=== PATIENT | female | born 1980 | race Caucasian/White ===

== ENCOUNTER → 2016-08-25 | Outpatient (REF) | payer OTHER ==
[~2016-08-25] MED LIST: ACET50TA PO; ANUS2.5C2 EXT; COLA50CA3 PO; IBUP80TA PO; MOM30SS PO; PRENTAB9 PO; PREV30CA6 PO
== END ==
LOC: M LAB REF 16:46
PROVIDERS: ATTEND Advanced Practice Midwife
DX: R87.610 Atypical squamous cells of undetermined significance on cytologic smear of cervix (ASC-US) (principal)

== ENCOUNTER → 2017-08-16 | Outpatient (REF) | payer OTHER | LOC: M LAB REF 10:26 | DX: J11.1 Influenza due to unidentified influenza virus with other respiratory manifestations (principal) | CPT/HCPCS: 87633 ==

== ENCOUNTER → 2018-07-07 | Outpatient (REF) | payer OTHER ==
[~2018-07-07] MED LIST changes: +MAPA500T2 PO
[2018-07-12 14:37] LABS: HPV HYBRID CAPTURE II Negative (Negative)
== END ==
LOC: M LAB REF 17:07
PROVIDERS: ATTEND Advanced Practice Midwife
DX: Z12.4 Encounter for screening for malignant neoplasm of cervix (principal)

== ENCOUNTER → 2018-07-13 | Outpatient (CLI) | payer OTHER ==
--- NOTE | 2018-07-14 03:04 | REP ---
Clinical: Evaluate for foreign body (IUD). Technique: Two supine views of the abdomen and pelvis. Findings: No foreign body is identified. No IUD visualized. The bowel gas pattern is nonspecific. No organomegaly. No abnormal calcifications. Skeletal structures are intact. Impression: Normal abdominal radiograph. No foreign body/IUD. Electronically Signed by Yunior Bernal MD 07/14/2018 02:55 A
--- NOTE | 2018-07-14 04:27 | REP ---
Clinical: Pelvic pain; IUD placement . Technique: Transabdominal pelvic ultrasound followed by transvaginal examination for better evaluation of the endometrium and adnexa. Findings: Bladder is unremarkable and measures 10.0 x 8.5 x 5.3 cm . Normal anteverted uterus measures 7.3 x 4.0 x 5.4 cm . The endometrial complex measures 6.6 mm thickness. No discrete uterine or endometrial abnormalities are appreciated. No IUD identified within the uterus or visualized surrounding adnexa. Bilateral ovaries are normal in appearance. Right ovary measures 3.4 x 1.6 x 2.6 cm ; Left ovary measures 2.7 x 1.7 x 2.2 cm with 1.7 cm paraovarian cyst. No pelvic fluid or adnexal mass lesion . Impression: 1. Relatively normal anteverted uterus without IUD identified. 2. Normal bilateral ovaries. 3. 1.7 cm simple left para ovarian cyst. Electronically Signed by Yunior Bernal MD 07/14/2018 04:19 A
== END ==
LOC: M RAD 10:00
PROVIDERS: ATTEND Advanced Practice Midwife
DX: Z30.431 Encounter for routine checking of intrauterine contraceptive device (principal); N92.0 Excessive and frequent menstruation with regular cycle; N83.292 Other ovarian cyst, left side

== ENCOUNTER → 2018-08-09 | Outpatient (REF) | payer OTHER | LOC: M LAB REF 17:15 | PROVIDERS: ATTEND Obstetrics & Gynecology | DX: N92.4 Excessive bleeding in the premenopausal period (principal) ==

== ENCOUNTER 2018-11-07 06:14 | Day surgery (SDC) | payer OTHER ==
[~2018-11-07] VITALS: Ht 167.6 cm; Wt 75.7 kg
[~2018-11-07 06:14] MED LIST changes: -ACET50TA PO; +LIDOCAINE 1% MDV 20ML VIAL SQ PRN; +LR 1,000 ML IV ONE; +MAPA500T17 PO
[2018-11-07 06:53] LABS: HEMATOCRIT 36.7 % (36.0-47.0); HEMOGLOBIN 11.7 g/dl (12.0-15.5); MEAN CORPUSCULAR HEMOGLOBIN 27.2 pg (27.0-33.0); MEAN CORPUSCULAR HGB CONC 31.9 g/dl (32.0-36.5); MEAN CORPUSCULAR VOLUME 85.3 fl (80.0-96.0); PLATELET COUNT, AUTOMATED 269 10^3/uL (150-450); WHITE BLOOD COUNT 4.9 10^3/uL (4.0-10.0)
[2018-11-07] MEDS ORDERED: LIDOCAINE 2% INJ 100 MG/5 ML SDV (FOR ANES.) As Ordered ONE (07:13)
[2018-11-07] MEDS ORDERED: PROPOFOL 200 MG/20 ML VIAL As Ordered ONE (07:13)
[2018-11-07] MEDS ORDERED: MIDAZOLAM INJ 2 MG/2 ML VIAL (J2250) As Ordered ONE (07:13)
[2018-11-07] MEDS ORDERED: fentaNYL 250 MCG/5 ML INJECTION (J3010) As Ordered ONE (07:13)
[2018-11-07] MEDS ORDERED: ROCURONIUM BROMIDE 50 MG/5 ML VIAL As Ordered ONE (07:13)
[2018-11-07] MEDS ORDERED: SCOPOLAMINE 1MG TRANSDERMAL PATCH As Ordered ONE (07:15)
[2018-11-07 07:23] LABS: HCG, SERUM QUALITATIVE NEGATIVE (NEGATIVE)
[2018-11-07] MEDS ORDERED: BUPIVACAINE HCL 0.25% 30 ML VIAL As Ordered ONE (07:29)
[2018-11-07] MEDS ORDERED: SCOPOLAMINE 1MG TRANSDERMAL PATCH TOP ONE (07:30)
[2018-11-07] MEDS ORDERED: KETOROLAC 60 MG/2 ML VIAL (J1885) As Ordered ONE (08:00)
[2018-11-07] MEDS ORDERED: dexameTHASONE 4 MG/ML 1ML VIAL (J1100) As Ordered ONE (08:00)
[2018-11-07] MEDS ORDERED: ONDANSETRON 4MG/2ML VIAL (J2405) As Ordered ONE (08:00)
[2018-11-07] MEDS ORDERED: NEOSTIGMINE 10 MG/10 ML VIAL (J2710) As Ordered ONE (08:00)
[2018-11-07] MEDS ORDERED: ACETAMINOPHEN 1000MG 100ML IV BTL (OFIRMEV) (J0131 PER 10MG) As Ordered ONE (08:00)
[2018-11-07] MEDS ORDERED: METOCLOPRAMIDE INJ 10MG/2ML VIAL (J2765) As Ordered ONE (08:00)
[2018-11-07] MEDS ORDERED: GLYCOPYRROLATE INJ 0.2 MG/ML 2 ML VIAL As Ordered ONE (08:00)
[2018-11-07] MEDS ORDERED: SILVER NITRATE APPLICATOR As Ordered ONE ×2 (08:50→08:54)
[2018-11-07] MEDS ORDERED: OXYC1TAB23 PO (09:09)
[2018-11-07] MEDS ORDERED: MEPERIDINE INJ 25 MG/ML VIAL (J2175) IV PRN (09:30)
[2018-11-07] MEDS ORDERED: ONDANSETRON 4MG/2ML VIAL (J2405) IV PRN (09:30)
[2018-11-07] MEDS ORDERED: PERCOCET 5MG/325MG TAB PO PRN (09:30)
[2018-11-07] MEDS ORDERED: fentaNYL 100 MCG/2 ML INJECTION (J3010) IV PRN (09:30)
[2018-11-07] MEDS ORDERED: NORCO, ANEXSIA 5/325MG TABLET (HYDROcodone/ACETAMINOPHEN) PO PRN (09:30)
[2018-11-07 11:40] VITALS: BP 119/76
[2018-11-07] MEDS ORDERED: KETOROLAC 30 MG/ML VIAL (J1885) IV SCH (14:00)
--- NOTE | 2018-11-07 23:22 | RO ---
DATE OF PROCEDURE: 11/07/2018 PREOPERATIVE DIAGNOSES: 1. Abnormal uterine bleeding. 2. Satisfied parity with undesired fertility. POSTOPERATIVE DIAGNOSES: 1. Abnormal uterine bleeding. 2. Satisfied parity with undesired fertility. PROCEDURE PERFORMED: 1. Hysteroscopy with dilation, curettage and NovaSure ablation. 2. Laparoscopic bilateral salpingectomy. SURGEON: Margi Van MD RESIDENTIAL INSTALLER: None. ANESTHESIA: General endotracheal anesthesia. ESTIMATED BLOOD LOSS: 20 mL. URINE OUTPUT: 300 mL. INTRAVENOUS FLUIDS: 1700 mL of lactated Ringer's solution. SPECIMENS: 1. Bilateral fallopian tube. 2. Endometrial curettings. OPERATIVE FINDINGS: Patient with uterine cavity of 4.5 x 2.5 cm. Hysteroscopic findings prior showed a thickened endometrium, bilateral ostia were visualized. Post endometrial ablation showed desiccation of the endometrium. Laparoscopic findings revealed normal uterus, bilateral fallopian tubes and ovaries appeared to be normal, normal appearing liver edge and appendix. PREOPERATIVE ANTIBIOTICS: None. INFECTION CLASSIFICATION: 1. DESCRIPTION OF PROCEDURE: After informed consent was obtained and written consent was reviewed, the patient was brought to the operating room where she was placed under general endotracheal anesthesia. She was then placed in the lithotomy position and was prepped and draped in the normal sterile fashion. A time-out in the operating room was then performed identifying the patient, procedure to be performed, as well as drug allergies. A bivalve speculum was then placed revealing the cervix. The anterior lip of the cervix was grasped with a single-tooth tenaculum. Uterus then sounded determining the uterine length of 4.5 cm. The cervix was then sequentially dilated using Hanks dilators. Hysteroscope was then advanced to the cervical os, and the endometrial cavity was surveyed with the above-noted findings. The hysteroscope was then removed. A sharp curette was then advanced through the cervical os and level of the fundus and the uterus was curetted in a 360-degree fashion. Specimen was then collected and was sent to pathology. The NovaSure device was then placed. The uterine width was then obtained. Both the uterine width and length was entered into the NovaSure device. Cavity assessment was then performed, and this was followed by ablation for 2 minutes. The NovaSure device was then removed, the mesh was inspected and noted to be intact. Hysteroscope was then advanced through the cervical os, and the endometrial cavity was inspected showing desiccation of the endometrium. The hysteroscope was then removed. Hulka tenaculum was then advanced to the cervical os for means to manipulate the uterus. Single-tooth tenaculum was removed as well as the speculum. Shaw catheter was placed and set to gravity. Gloves were changed. Attention was then turned to the patient's abdomen where 0.25% Marcaine was infused in the umbilical region. This area was then incised and a 5 mm trocar and sleeve was advanced through this incision. The laparoscope was then replaced revealing intra-abdominal placement. A pneumoperitoneum was then obtained with CO2 gas. The abdomen was then surveyed with the above noted findings. Two additional port sites were placed. The first was 2 cm above the pubis symphysis in the midline. This area was infused with 0.25% Marcaine. Incision was then made and an 8 mm trocar and sleeve was advanced through this incision under direct visualization. A third trocar was placed on to the left side of the patient's abdomen just below the umbilicus, and this area was infused with 0.25% Marcaine. And a 5 mm trocar and sleeve was advanced through this incision under direct visualization. Next, using Harmonic Ovi scalpel device, the right mesosalpinx was dissected below the fallopian tube, and right fallopian tube was transected at the level of the uterus. The specimen was then brought out and in a similar fashion, the left mesosalpinx was dissected along the left fallopian tube. It was transected at the level of the uterus. The specimen was removed. Surgical sites were inspected and noted to be hemostatic. The pneumoperitoneum was then released. Instruments were removed. Trocars were removed. Incisions were then closed with #4-0 Monocryl and was dressed with Dermabond. Single- tooth tenaculum was removed. Tenaculum site was inspected and silver nitrate was applied for hemostasis. Shaw catheter was then removed. The patient was then taken out of the lithotomy position, was awakened from general anesthesia and taken to recovery in stable condition. Counts were correct. MTDD
== END 2018-11-07 11:47 | disposition home or self-care (01) ==
LOC: M SDC 06:14
PROVIDERS: ATTEND Obstetrics & Gynecology
DX: Z30.2 Encounter for sterilization (principal); N92.6 Irregular menstruation, unspecified; Z88.0 Allergy status to penicillin; Z88.2 Allergy status to sulfonamides; Z87.891 Personal history of nicotine dependence
CPT/HCPCS: 36415; 58563; 58661; 84703; 85027; 86850; 86900; 86901; 88302; 88305; J0131; J1100; J1885; J2250; J2405; J2710; J2765; J3010

== ENCOUNTER → 2019-10-11 | Outpatient (REF) | payer OTHER ==
[~2019-10-11] MED LIST changes: -LIDOCAINE 1% MDV 20ML VIAL SQ PRN; -LR 1,000 ML IV ONE; +OXYC1TAB23 PO
== END ==
LOC: M SFHCWAGY 13:00
PROVIDERS: ATTEND Nurse Practitioner Women's Health
DX: R31.0 Gross hematuria (principal)

== ENCOUNTER → 2021-04-17 | Outpatient (CLI) | payer BC ==
--- NOTE | 2021-04-17 19:25 | REP ---
INDICATION: LEFT FLANK PAIN COMPARISON: None. TECHNIQUE: Supine view of the abdomen and pelvis. FINDINGS: Bowel gas pattern is nonspecific and without obstruction or perforation. No organomegaly. No abnormal calcifications. Skeletal structures intact. IMPRESSION: Nonspecific abdominal radiograph. <Electronically signed by Yunior Bernal > 04/17/211921
== END ==
LOC: M RAD 18:57
PROVIDERS: ATTEND Physician Assistant
DX: R10.9 Unspecified abdominal pain (principal)

== ENCOUNTER → 2021-04-17 | Outpatient (REF) | payer BC, OTHER, SELFPAY ==
[2021-04-17 17:07] LABS: APPEARANCE, URINE CLEAR (CLEAR); BACTERIA, URINE AUTO NEGATIVE (NEGATIVE); BILIRUBIN, URINE AUTO NEGATIVE (NEGATIVE); BLOOD, URINE BLOOD 1+ (NEGATIVE); COLOR, URINE YELLOW (YELLOW); GLUCOSE, URINE (UA) AUTO NEGATIVE (NEGATIVE); KETONE, URINE AUTO 2+ mg/dL (NEGATIVE); LEUKOCYTE ESTERASE, URINE AUTO NEGATIVE (NEGATIVE); MUCUS, URINE SMALL (NEGATIVE); NITRITE, URINE AUTO NEGATIVE (NEGATIVE); PROTEIN, URINE AUTO NEGATIVE (NEGATIVE); RBC, URINE AUTO 0 /HPF (0-3); SPECIFIC GRAVITY URINE AUTO 1.028 (1.002-1.035); SQUAMOUS EPITHELIAL CELL UR AU 1 /HPF (0-6); UROBILINOGEN, URINE AUTO 0.2 mg/dL (0.0-2.0); WBC, URINE AUTO 1 /HPF (0-3)
== END ==
LOC: M LAB REF 16:17
PROVIDERS: ATTEND Physician Assistant
DX: N39.0 Urinary tract infection, site not specified (principal)

== ENCOUNTER → 2021-10-22 | Outpatient (REF) | payer BC | LOC: M SFHCWAGY 17:09 | PROVIDERS: ATTEND Obstetrics & Gynecology | DX: Z12.4 Encounter for screening for malignant neoplasm of cervix (principal) ==

== ENCOUNTER → 2021-11-06 | Outpatient (CLI) | payer BC | LOC: M WHC 10:38 | PROVIDERS: ATTEND Obstetrics & Gynecology | DX: N93.9 Abnormal uterine and vaginal bleeding, unspecified (principal) ==

== ENCOUNTER → 2021-11-11 | Outpatient (REF) | payer BC | LOC: M SFHCWAGY 19:10 | PROVIDERS: ATTEND Obstetrics & Gynecology | DX: N87.1 Moderate cervical dysplasia (principal); N87.0 Mild cervical dysplasia ==

== ENCOUNTER → 2021-12-17 | Outpatient (CLI) | payer BC ==
[~2021-12-17] MED LIST changes: +COLA100C5 PO; +LEXA5TAB13; +ONDA4TAB6 PO; +PERCOCET PO
== END ==
LOC: M LABSMTC 10:23
PROVIDERS: ATTEND Anesthesiology
DX: Z01.818 Encounter for other preprocedural examination (principal); Z11.52 Encounter for screening for COVID-19

== ENCOUNTER 2021-12-18 08:11 | Day surgery (SDC) | payer BC ==
[~2021-12-18] VITALS: Ht 167.6 cm; Wt 82.6 kg
[~2021-12-18 08:11] MED LIST changes: +CLINDAMYCIN 900 MG in IV 1 EA IV ONE; -COLA100C5 PO; -ONDA4TAB6 PO; -PERCOCET PO
[2021-12-18] MEDS ORDERED: LR 1,000 ML IV SCH ×3 (08:30→12:05)
[2021-12-18] MEDS ORDERED: propofoL 200 MG/20 ML VIAL As Ordered ONE (08:32)
[2021-12-18] MEDS ORDERED: ROCURONIUM BROMIDE 50 MG/5 ML VIAL As Ordered ONE ×2 (08:32→10:46)
[2021-12-18] MEDS ORDERED: LIDOCAINE 2% 100MG/5ML SDV (FOR ANES.) As Ordered ONE ×2 (08:32→08:33)
[2021-12-18] MEDS ORDERED: dexameTHASONE 4 MG/ML 1ML VIAL (J1100 PER 1MG) As Ordered ONE (08:33)
[2021-12-18] MEDS ORDERED: MIDAZOLAM INJ 2MG/2ML VIAL (J2250 PER 1MG) As Ordered ONE (08:33)
[2021-12-18] MEDS ORDERED: ONDANSETRON 4MG/2ML VIAL As Ordered ONE (08:33)
[2021-12-18] MEDS ORDERED: fentaNYL 100 MCG/2 ML INJECTION As Ordered ONE ×2 (08:33→11:33)
[2021-12-18 08:41] LABS: HEMOGLOBIN 13.5 g/dl (12.0-15.5); MEAN CORPUSCULAR HEMOGLOBIN 32.4 pg (27.0-33.0); MEAN CORPUSCULAR HGB CONC 33.8 g/dl (32.0-36.5); MEAN CORPUSCULAR VOLUME 95.9 fl (80.0-96.0); PLATELET COUNT, AUTOMATED 251 10^3/uL (150-450); RED BLOOD COUNT 4.17 10^6/uL (4.00-5.40); WHITE BLOOD COUNT 4.4 10^3/uL (4.0-10.0)
[2021-12-18] MEDS ORDERED: SUGAMMADEX SODIUM 500 MG/5 ML VIAL (BRIDION) As Ordered ONE (08:43)
[2021-12-18] MEDS ORDERED: KETOROLAC 60MG 2ML VIAL As Ordered ONE (08:43)
[2021-12-18] MEDS ORDERED: SCOPOLAMINE 1MG TRANSDERMAL PATCH TOP ONE (08:55)
[2021-12-18] MEDS ORDERED: GENTAMICIN IV ONE (09:00)
[2021-12-18] MEDS ORDERED: D5W IV ONE (09:00)
[2021-12-18] MEDS ORDERED: BUPIVACAINE HCL 0.25% 10ML VIAL As Ordered ONE ×2 (09:18→10:04)
[2021-12-18] MEDS ORDERED: METHYLENE BLUE 0.5% (5MG/ML) 10 ML AMP (PROVAYBLUE) As Ordered ONE (09:19)
[2021-12-18] MEDS ORDERED: ACETAMINOPHEN 1000MG 100ML IV BTL (OFIRMEV) (J0131 PER 10MG) As Ordered ONE (11:08)
[2021-12-18] MEDS ORDERED: METOCLOPRAMIDE INJ 10MG/2ML VIAL (J2765 PER 1) As Ordered ONE (11:24)
[2021-12-18] MEDS ORDERED: oxyCODONE 5MG TAB PO PRN (11:30)
[2021-12-18] MEDS ORDERED: HYDROMORPHONE HCL 0.5 MG/ 0.5 ML SYRINGE (J1170 PER 1) IV PRN (11:30)
[2021-12-18] MEDS ORDERED: ONDANSETRON 4MG/2ML VIAL IV PRN ×2 (11:30→12:05)
[2021-12-18] MEDS ORDERED: fentaNYL 100 MCG/2 ML INJECTION IV PRN (11:30)
[2021-12-18] MEDS ORDERED: PERCOCET 5MG/325MG TAB PO PRN ×2 (12:10)
[2021-12-18] MEDS ORDERED: MORPHINE 2 MG/ML 1ML VIAL IV PRN (12:10)
[2021-12-18] MEDS ORDERED: COLA100C5 PO (12:14)
[2021-12-18] MEDS ORDERED: PERCOCET PO (12:14)
[2021-12-18] MEDS ORDERED: IBUP80TA PO (12:14)
[2021-12-18 15:10] VITALS: BP 110/64
[2021-12-18] MEDS ORDERED: ONDA4TAB6 PO (15:27)
[2021-12-18] MEDS ORDERED: KETOROLAC 30 MG/ML 1ML VIAL IV SCH (17:00)
[2021-12-18] MEDS ORDERED: DOCUSATE SODIUM 100MG CAPSULE PO SCH (21:00)
[2021-12-19] MEDS ORDERED: IBUPROFEN 800 MG TAB PO SCH (19:00)
== END 2021-12-18 15:16 | disposition home or self-care (01) ==
LOC: M SDC 08:11
PROVIDERS: ATTEND Obstetrics & Gynecology
DX: N87.0 Mild cervical dysplasia (principal); N88.8 Other specified noninflammatory disorders of cervix uteri; F41.9 Anxiety disorder, unspecified; Z88.0 Allergy status to penicillin; Z88.1 Allergy status to other antibiotic agents; Z88.2 Allergy status to sulfonamides; Z88.8 Allergy status to other drugs, medicaments and biological substances; Z79.899 Other long term (current) drug therapy
CPT/HCPCS: 36415; 58570; 85027; 86850; 86900; 86901; 88307; J0131; J1100; J1580; J1885; J2250; J2405; J2765; J3010; Q9968; S2900

== ENCOUNTER → 2022-03-11 | Outpatient (CLI) | payer BC ==
[~2022-03-11] MED LIST changes: -CLINDAMYCIN 900 MG in IV 1 EA IV ONE; +COLA100C5 PO; +ONDA4TAB6 PO; +PERCOCET PO
== END ==
LOC: M RAD 11:44
PROVIDERS: ATTEND Physician Assistant
DX: J32.8 Other chronic sinusitis (principal)

== ENCOUNTER → 2022-05-09 | Outpatient (CLI) | payer BC ==
[~2022-05-09] MED LIST changes: +LEXA5TAB13 PO; +VALA500T5 PO; +VITMTA PO; +XIID5DRO OU
== END ==
LOC: M LABSMTC 11:07
PROVIDERS: ATTEND Anesthesiology
DX: Z01.812 Encounter for preprocedural laboratory examination (principal)

== ENCOUNTER 2022-05-10 10:23 | Day surgery (SDC) | payer BC ==
[~2022-05-10] VITALS: Ht 167.6 cm; Wt 88.0 kg
[2022-05-10] MEDS ORDERED: OXYMETAZOLINE 0.05% NASAL SPRAY (AFRIN) As Ordered ONE (10:43)
[2022-05-10] MEDS ORDERED: COCAINE 4% 4ML NASAL SOLUTION BTL As Ordered ONE (10:43)
[2022-05-10] MEDS ORDERED: LIDOCAINE W/EPINEPHRINE 1% 20ML VIAL As Ordered ONE (10:45)
[2022-05-10] MEDS ORDERED: LR 1,000 ML IV SCH ×2 (10:55→13:35)
[2022-05-10] MEDS ORDERED: SCOPOLAMINE 1MG TRANSDERMAL PATCH TOP ONE (12:00)
[2022-05-10] MEDS ORDERED: ACETAMINOPHEN 1000MG 100ML IV BTL (OFIRMEV) (J0131 PER 10MG) As Ordered ONE (12:51)
[2022-05-10] MEDS ORDERED: SUGAMMADEX SODIUM 500 MG/5 ML VIAL (BRIDION) As Ordered ONE (12:51)
[2022-05-10] MEDS ORDERED: ONDANSETRON 4MG 2ML VIAL As Ordered ONE (12:51)
[2022-05-10] MEDS ORDERED: MIDAZOLAM INJ 2MG/2ML VIAL (J2250 PER 1MG) As Ordered ONE (12:51)
[2022-05-10] MEDS ORDERED: METOCLOPRAMIDE INJ 10MG/2ML VIAL (J2765 PER 1) As Ordered ONE (12:51)
[2022-05-10] MEDS ORDERED: dexameTHASONE 4 MG/ML 1ML VIAL (J1100 PER 1MG) As Ordered ONE (12:51)
[2022-05-10] MEDS ORDERED: ROCURONIUM BROMIDE 50 MG/5 ML VIAL As Ordered ONE (12:51)
[2022-05-10] MEDS ORDERED: LIDOCAINE 2% 100MG/5ML SDV (FOR ANES.) As Ordered ONE (12:51)
[2022-05-10] MEDS ORDERED: fentaNYL 100 MCG/2 ML INJECTION As Ordered ONE (12:51)
[2022-05-10] MEDS ORDERED: propofoL 200 MG/20 ML VIAL As Ordered ONE (12:51)
[2022-05-10] MEDS ORDERED: SEVOFLURANE INHAL SOLN 250 ML BTL As Ordered ONE (13:00)
[2022-05-10] MEDS ORDERED: HYDROMORPHONE HCL 0.5 MG/ 0.5 ML SYRINGE (J1170 PER 1) IV PRN (13:35)
[2022-05-10] MEDS ORDERED: oxyCODONE 5MG TAB PO PRN (13:35)
[2022-05-10] MEDS ORDERED: fentaNYL 100 MCG/2 ML INJECTION IV PRN (13:35)
[2022-05-10] MEDS ORDERED: ONDANSETRON 4MG 2ML VIAL IV PRN (13:35)
[2022-05-10 15:33] VITALS: BP 125/71
== END 2022-05-10 15:47 | disposition home or self-care (01) ==
LOC: M SDC 10:23
PROVIDERS: ATTEND Otolaryngology
DX: J34.2 Deviated nasal septum (principal); J34.3 Hypertrophy of nasal turbinates; Z88.1 Allergy status to other antibiotic agents; Z88.0 Allergy status to penicillin; Z88.2 Allergy status to sulfonamides; Z88.8 Allergy status to other drugs, medicaments and biological substances
CPT/HCPCS: 30140; 30520; C9046; J0131; J1100; J2250; J2405; J2765; J3010

== ENCOUNTER → 2022-10-27 | Outpatient (CLI) | payer BC | LOC: M PLAIMG 08:02 | PROVIDERS: ATTEND Physician Assistant Surgical | DX: S86.111D Strain of other muscle(s) and tendon(s) of posterior muscle group at lower leg level, right leg, subsequent encounter (principal) ==

== ENCOUNTER → 2023-01-05 | Outpatient (REF) | payer BC ==
[2023-01-05 12:11] LABS: BASO % 0.4 % (0.0-1.0); EOS # 0.1 10^3/uL (0.0-0.5); EOS % 2.1 % (0.0-3.0); HEMATOCRIT 38.9 % (36.0-47.0); HEMOGLOBIN 13.2 g/dl (12.0-15.5); LYMPH # 1.5 10^3/uL (1.5-5.0); LYMPH % 26.3 % (24.0-44.0); MEAN CORPUSCULAR HEMOGLOBIN 32.2 pg (27.0-33.0); MEAN CORPUSCULAR HGB CONC 33.9 g/dl (32.0-36.5); MEAN CORPUSCULAR VOLUME 94.9 fl (80.0-96.0); MONO # 0.5 10^3/uL (0.0-0.8); MONO % 8.9 % (2.0-8.0); NEUTROPHILS # 3.5 10^3/uL (1.5-8.5); NEUTROPHILS % 61.9 % (36.0-66.0); PLATELET COUNT, AUTOMATED 292 10^3/uL (150-450); WHITE BLOOD COUNT 5.7 10^3/uL (4.0-10.0)
[2023-01-05 12:16] LABS: ALBUMIN 3.7 G/DL (3.2-5.2); ALKALINE PHOSPHATASE 57 U/L (46-116); ALT/SGPT < 9 U/L (7.0-40); AST/SGOT 20 U/L (<34); BILIRUBIN,TOTAL 0.6 MG/DL (0.3-1.2); BLOOD UREA NITROGEN 13 MG/DL (9-23); CALCIUM LEVEL 8.7 MG/DL (8.5-10.1); CARBON DIOXIDE LEVEL 27 MMOL/L (20-31); CHLORIDE LEVEL 106 MMOL/L (98-107); CHOLESTEROL LEVEL 161 MG/DL (<200); CHOLESTEROL RISK RATIO 2.19 (<5); CREATININE FOR GFR 0.79 MG/DL (0.55-1.30); GLOMERULAR FILTRATION RATE > 60.0 (>58); GLUCOSE, FASTING 99 MG/DL (60-100); HDL CHOLESTEROL 73.5 MG/DL (>40); LDL CHOLESTEROL 77.1 MG/DL (<100); NON-HDL-C 87.5 MG/DL; POTASSIUM SERUM 4.1 MMOL/L (3.5-5.1); SODIUM LEVEL 140 MMOL/L (136-145); TOTAL PROTEIN 6.5 G/DL (5.7-8.2); TRIGLYCERIDES LEVEL 52 MG/DL (<150)
[2023-01-05 12:18] LABS: THYROID STIMULATING HORMONE 0.641 uIU/ML (0.55-4.78)
== END ==
LOC: M LAB REF 11:32
PROVIDERS: ATTEND Internal Medicine
DX: Z00.00 Encounter for general adult medical examination without abnormal findings (principal); Z13.220 Encounter for screening for lipoid disorders; Z84.81 Family history of carrier of genetic disease

== ENCOUNTER → 2023-01-14 | Outpatient (REF) | payer BC ==
[2023-01-14 12:09] LABS: C REACTIVE PROTEIN QUANTITATIV < 0.40 MG/DL (<1.0)
[2023-01-14 12:11] LABS: FOLLICLE STIMULATING HORMONE 15.2 mIU/ML; LUTEINIZING HORMONE 35.2 mIU/ML
== END ==
LOC: M LAB REF 11:15
PROVIDERS: ATTEND Internal Medicine
DX: B00.89 Other herpesviral infection (principal); N95.1 Menopausal and female climacteric states

== ENCOUNTER → 2023-01-31 | Outpatient (CLI) | payer BC ==
[~2023-01-31] MED LIST changes: +E-Z-GAS II EFFERVESCENT PACKET (SODIUM BICARB./CITRIC ACID/SIMETHICONE) As Ordered ONE; +E-Z-HD 98% w/w 340GM SUSP BTL As Ordered ONE; +E-Z-PAQUE 96% w/w SUSP 176GM BTL As Ordered ONE
== END ==
LOC: M RAD 09:32
PROVIDERS: ATTEND Internal Medicine
DX: K30 Functional dyspepsia (principal)

== ENCOUNTER 2023-05-16 13:50 | Day surgery (SDC) | payer BC ==
[~2023-05-16] VITALS: Ht 167.6 cm; Wt 93.4 kg
[~2023-05-16 13:50] MED LIST changes: -E-Z-GAS II EFFERVESCENT PACKET (SODIUM BICARB./CITRIC ACID/SIMETHICONE) As Ordered ONE; -E-Z-HD 98% w/w 340GM SUSP BTL As Ordered ONE; -E-Z-PAQUE 96% w/w SUSP 176GM BTL As Ordered ONE; +ESOM0.1C PO; +NS 1,000 ML IV ONE
[2023-05-16] MEDS ORDERED: fentaNYL 100 MCG/2 ML INJECTION As Ordered ONE (14:03)
[2023-05-16] MEDS ORDERED: LIDOCAINE 2% 100MG/5ML SDV (FOR ANES.) As Ordered ONE (14:04)
[2023-05-16] MEDS ORDERED: propofoL 200 MG/20 ML VIAL As Ordered ONE ×2 (14:04→14:47)
[2023-05-16] MEDS ORDERED: ONDANSETRON 4MG 2ML VIAL As Ordered ONE (14:23)
[2023-05-16 14:51] VITALS: TEMP 98.9
[2023-05-16 15:05] VITALS: BP 131/85; O2SAT 98
== END 2023-05-16 15:15 | disposition home or self-care (01) ==
LOC: M OPP 13:50
PROVIDERS: ATTEND Internal Medicine Gastroenterology
DX: K31.7 Polyp of stomach and duodenum (principal); K44.9 Diaphragmatic hernia without obstruction or gangrene; K22.89 Other specified disease of esophagus; K21.9 Gastro-esophageal reflux disease without esophagitis; Z79.899 Other long term (current) drug therapy; Z88.0 Allergy status to penicillin; Z88.1 Allergy status to other antibiotic agents; Z88.2 Allergy status to sulfonamides; Z88.8 Allergy status to other drugs, medicaments and biological substances
CPT/HCPCS: 43239; 43251; 88305; J2405; J3010

== ENCOUNTER 2023-07-07 11:51 | Day surgery (SDC) | payer OTHER ==
[~2023-07-07] VITALS: Ht 167.6 cm; Wt 95.3 kg
[~2023-07-07 11:51] MED LIST changes: +NS 1,000 ML IV ONE
[2023-07-07] MEDS ORDERED: fentaNYL 100 MCG/2 ML INJECTION As Ordered ONE (12:10)
[2023-07-07] MEDS ORDERED: propofoL 200 MG/20 ML VIAL As Ordered ONE (12:11)
[2023-07-07] MEDS ORDERED: LIDOCAINE 2% 100MG/5ML SDV (FOR ANES.) As Ordered ONE (12:11)
[2023-07-07 12:31] VITALS: TEMP 97
[2023-07-07 12:48] VITALS: BP 140/81; O2SAT 98
== END 2023-07-07 13:09 | disposition home or self-care (01) ==
LOC: M OPP 11:51
PROVIDERS: ATTEND Internal Medicine Gastroenterology
DX: Z01.818 Encounter for other preprocedural examination (principal); K22.89 Other specified disease of esophagus; K44.9 Diaphragmatic hernia without obstruction or gangrene; Z79.52 Long term (current) use of systemic steroids; Z79.899 Other long term (current) drug therapy; Z88.0 Allergy status to penicillin; Z88.1 Allergy status to other antibiotic agents; Z88.2 Allergy status to sulfonamides
CPT/HCPCS: 43235; 91035; J3010

== ENCOUNTER → 2023-07-07 | Outpatient (CLI) | payer OTHER ==
[~2023-07-07] MED LIST changes: +CETI10CH PO; -NS 1,000 ML IV ONE
== END ==
LOC: M PLALAB 08:52
PROVIDERS: ATTEND Internal Medicine Endocrinology, Diabetes & Metabolism
DX: E66.8 Other obesity (principal)

== ENCOUNTER → 2023-08-04 | Outpatient (CLI) | payer OTHER ==
[~2023-08-04] MED LIST changes: -NS 1,000 ML IV ONE
== END ==
LOC: M OUTALCOH 08:28
PROVIDERS: ATTEND Psychiatry & Neurology Psychiatry
DX: F10.10 Alcohol abuse, uncomplicated (principal)

== ENCOUNTER 2023-08-10 08:33 | Outpatient (RCR) | payer OTHER | END 2023-09-01 | LOC: M OUTALCOH 08:33 | PROVIDERS: ATTEND Psychiatry & Neurology Psychiatry | DX: Z03.89 Encounter for observation for other suspected diseases and conditions ruled out (principal) ==

== ENCOUNTER → 2023-10-13 | Outpatient (REF) | payer OTHER ==
[2023-10-13 12:49] LABS: APPEARANCE, URINE HAZY (CLEAR); BACTERIA, URINE AUTO NEGATIVE (NEGATIVE); BILIRUBIN, URINE AUTO NEGATIVE (NEGATIVE); BLOOD, URINE BLOOD NEGATIVE (NEGATIVE); COLOR, URINE YELLOW (YELLOW); GLUCOSE, URINE (UA) AUTO NEGATIVE (NEGATIVE); KETONE, URINE AUTO NEGATIVE (NEGATIVE); LEUKOCYTE ESTERASE, URINE AUTO NEGATIVE (NEGATIVE); MUCUS, URINE SMALL (NEGATIVE); NITRITE, URINE AUTO NEGATIVE (NEGATIVE); PROTEIN, URINE AUTO NEGATIVE (NEGATIVE); RBC, URINE AUTO 0 /HPF (0-3); SPECIFIC GRAVITY URINE AUTO 1.018 (1.002-1.035); SQUAMOUS EPITHELIAL CELL UR AU 2 /HPF (0-6); UROBILINOGEN, URINE AUTO 0.2 mg/dL (0.0-2.0); WBC, URINE AUTO 1 /HPF (0-3)
[2023-10-13 12:57] LABS: BASO % 0.4 % (0.0-1.0); EOS # 0.1 10^3/uL (0.0-0.5); HEMATOCRIT 41.3 % (36.0-47.0); HEMOGLOBIN 13.6 g/dl (12.0-15.5); LYMPH # 1.2 10^3/uL (1.5-5.0); LYMPH % 24.5 % (24.0-44.0); MEAN CORPUSCULAR HEMOGLOBIN 30.1 pg (27.0-33.0); MEAN CORPUSCULAR HGB CONC 32.9 g/dl (32.0-36.5); MEAN CORPUSCULAR VOLUME 91.4 fl (80.0-96.0); MONO # 0.4 10^3/uL (0.0-0.8); MONO % 7.3 % (2.0-8.0); NEUTROPHILS # 3.3 10^3/uL (1.5-8.5); NEUTROPHILS % 65.4 % (36.0-66.0); PLATELET COUNT, AUTOMATED 301 10^3/uL (150-450); RED BLOOD COUNT 4.52 10^6/uL (4.00-5.40); WHITE BLOOD COUNT 5.1 10^3/uL (4.0-10.0)
[2023-10-13 13:00] LABS: ALBUMIN 3.8 G/DL (3.2-5.2); ALKALINE PHOSPHATASE 71 U/L (46-116); ALT/SGPT 39 U/L (7.0-40); AST/SGOT 17 U/L (<34); BILIRUBIN,TOTAL 0.8 MG/DL (0.3-1.2); BLOOD UREA NITROGEN 6 MG/DL (9-23); CALCIUM LEVEL 8.9 MG/DL (8.5-10.1); CARBON DIOXIDE LEVEL 29 MMOL/L (20-31); CHLORIDE LEVEL 105 MMOL/L (98-107); CHOLESTEROL LEVEL 151 MG/DL (<200); CHOLESTEROL RISK RATIO 2.16 (<5); CREATININE FOR GFR 0.75 MG/DL (0.55-1.30); GLOMERULAR FILTRATION RATE > 60.0 (>58); GLUCOSE, FASTING 95 MG/DL (60-100); HDL CHOLESTEROL 69.9 MG/DL (>40); LDL CHOLESTEROL 69.1 MG/DL (<100); NON-HDL-C 81.1 MG/DL; POTASSIUM SERUM 4.3 MMOL/L (3.5-5.1); SODIUM LEVEL 140 MMOL/L (136-145); TOTAL PROTEIN 6.5 G/DL (5.7-8.2); TRIGLYCERIDES LEVEL 60 MG/DL (<150)
[2023-10-13 13:03] LABS: THYROID STIMULATING HORMONE 0.475 uIU/ML (0.55-4.78)
== END ==
LOC: M LAB REF 11:49
PROVIDERS: ATTEND Internal Medicine
DX: R03.0 Elevated blood-pressure reading, without diagnosis of hypertension (principal); K21.9 Gastro-esophageal reflux disease without esophagitis

== ENCOUNTER → 2023-12-29 | Outpatient (CLI) | payer OTHER ==
[~2023-12-29] MED LIST changes: -ESOM0.1C PO; +ESOM20CA2 PO; +ONDA-282 PO; -ONDA4TAB6 PO
== END ==
LOC: M WUC 09:41
PROVIDERS: ATTEND Internal Medicine
DX: M47.814 Spondylosis without myelopathy or radiculopathy, thoracic region (principal); M47.812 Spondylosis without myelopathy or radiculopathy, cervical region; M40.205 Unspecified kyphosis, thoracolumbar region

== ENCOUNTER → 2024-01-19 | Outpatient (CLI) | payer OTHER | LOC: M PLAIMG 12:47 | PROVIDERS: ATTEND Internal Medicine | DX: M40.293 Other kyphosis, cervicothoracic region (principal); M47.892 Other spondylosis, cervical region ==

== ENCOUNTER → 2024-04-19 | Outpatient (REF) | payer OTHER | LOC: M SFHCWAGY 15:10 | PROVIDERS: ATTEND Obstetrics & Gynecology | DX: Z12.72 Encounter for screening for malignant neoplasm of vagina (principal) ==

== ENCOUNTER → 2024-07-25 | Outpatient (CLI) | payer OTHER | LOC: M WUC 15:44 | PROVIDERS: ATTEND Physician Assistant Medical | DX: R05.9 Cough, unspecified (principal) ==

== ENCOUNTER → 2024-10-15 | Outpatient (REF) | payer OTHER ==
[2024-10-15 12:25] LABS: APPEARANCE, URINE HAZY (CLEAR); BACTERIA, URINE AUTO NEGATIVE (NEGATIVE); BILIRUBIN, URINE AUTO NEGATIVE (NEGATIVE); BLOOD, URINE BLOOD NEGATIVE (NEGATIVE); COLOR, URINE YELLOW (YELLOW); GLUCOSE, URINE (UA) AUTO NEGATIVE (NEGATIVE); KETONE, URINE AUTO NEGATIVE (NEGATIVE); LEUKOCYTE ESTERASE, URINE AUTO NEGATIVE (NEGATIVE); MUCUS, URINE SMALL (NEGATIVE); NITRITE, URINE AUTO NEGATIVE (NEGATIVE); PROTEIN, URINE AUTO NEGATIVE (NEGATIVE); RBC, URINE AUTO 0 /HPF (0-3); SQUAMOUS EPITHELIAL CELL UR AU 2 /HPF (0-6); UROBILINOGEN, URINE AUTO 0.2 mg/dL (0.0-2.0); WBC, URINE AUTO 1 /HPF (0-3)
[2024-10-15 12:37] LABS: ALBUMIN 3.7 G/DL (3.2-5.2); ALKALINE PHOSPHATASE 74 U/L (35-104); ALT/SGPT 31 U/L (7.0-40); AST/SGOT 19 U/L (<34); BILIRUBIN,TOTAL 0.6 MG/DL (0.3-1.2); BLOOD UREA NITROGEN 13 MG/DL (9-23); CARBON DIOXIDE LEVEL 28 MMOL/L (20-31); CHLORIDE LEVEL 105 MMOL/L (98-107); CHOLESTEROL LEVEL 189 MG/DL (<200); CHOLESTEROL RISK RATIO 2.37 (<5); CREATININE FOR GFR 0.76 MG/DL (0.55-1.30); GLOMERULAR FILTRATION RATE > 90.0 (>58); GLUCOSE, FASTING 95 MG/DL (60-100); HDL CHOLESTEROL 79.7 MG/DL (>40); LDL CHOLESTEROL 91.1 MG/DL (<100); NON-HDL-C 109.3 MG/DL; POTASSIUM SERUM 5.2 MMOL/L (3.5-5.1); SODIUM LEVEL 141 MMOL/L (136-145); TOTAL PROTEIN 6.9 G/DL (5.7-8.2); TRIGLYCERIDES LEVEL 91 MG/DL (<150)
[2024-10-15 12:39] LABS: THYROID STIMULATING HORMONE 0.669 uIU/ML (0.55-4.78)
[2024-10-15 12:50] LABS: BASO % 0.6 % (0.0-1.0); EOS # 0.2 10^3/uL (0.0-0.5); EOS % 3.9 % (0.0-3.0); HEMATOCRIT 41.4 % (36.0-47.0); HEMOGLOBIN 13.7 g/dl (12.0-15.5); LYMPH # 1.5 10^3/uL (1.5-5.0); LYMPH % 31.1 % (24.0-44.0); MEAN CORPUSCULAR HEMOGLOBIN 31.9 pg (27.0-33.0); MEAN CORPUSCULAR HGB CONC 33.1 g/dl (32.0-36.5); MEAN CORPUSCULAR VOLUME 96.5 fl (80.0-96.0); MONO # 0.4 10^3/uL (0.0-0.8); MONO % 7.3 % (2.0-8.0); NEUTROPHILS # 2.7 10^3/uL (1.5-8.5); NEUTROPHILS % 56.7 % (36.0-66.0); PLATELET COUNT, AUTOMATED 318 10^3/uL (150-450); RED BLOOD COUNT 4.29 10^6/uL (4.00-5.40); WHITE BLOOD COUNT 4.8 10^3/uL (4.0-10.0)
== END ==
LOC: M LAB REF 11:58
PROVIDERS: ATTEND Internal Medicine
DX: E66.09 Other obesity due to excess calories (principal); K21.9 Gastro-esophageal reflux disease without esophagitis; R03.0 Elevated blood-pressure reading, without diagnosis of hypertension

== ENCOUNTER → 2024-11-12 | Outpatient (CLI) | payer OTHER ==
[~2024-11-12] MED LIST changes: +E-Z-GAS II EFFERVESCENT PACKET (SODIUM BICARB./CITRIC ACID/SIMETHICONE) As Ordered ONE; +E-Z-HD 98% w/w 340GM SUSP BTL As Ordered ONE; +E-Z-PAQUE 96% w/w SUSP 176GM BTL As Ordered ONE; +LIFI1DRO4 OU; -XIID5DRO OU
== END ==
LOC: M RAD 08:52
PROVIDERS: ATTEND Specialist
DX: R12 Heartburn (principal)

== ENCOUNTER → 2025-04-29 | Outpatient (REF) | payer OTHER ==
[~2025-04-29] MED LIST changes: -E-Z-GAS II EFFERVESCENT PACKET (SODIUM BICARB./CITRIC ACID/SIMETHICONE) As Ordered ONE; -E-Z-HD 98% w/w 340GM SUSP BTL As Ordered ONE; -E-Z-PAQUE 96% w/w SUSP 176GM BTL As Ordered ONE
== END ==
LOC: M LAB REF 21:11
PROVIDERS: ATTEND Physician Assistant Medical
DX: J03.90 Acute tonsillitis, unspecified (principal)

== ENCOUNTER → 2025-05-01 | Outpatient (REF) | payer OTHER | LOC: M LAB REF 17:43 | PROVIDERS: ATTEND Internal Medicine | DX: M25.512 Pain in left shoulder (principal) ==

== ENCOUNTER → 2025-05-06 | Outpatient (CLI) | payer OTHER | LOC: M LAB 16:00 → M PLALAB 16:00 | PROVIDERS: ATTEND Internal Medicine | DX: M06.4 Inflammatory polyarthropathy (principal); R70.0 Elevated erythrocyte sedimentation rate; R79.82 Elevated C-reactive protein (CRP) ==

== ENCOUNTER → 2025-05-06 | Outpatient (REF) | payer OTHER ==
[2025-05-06 15:31] LABS: RHEUMATOID FACTOR QUANT 8.9 IU/ML (<14)
[2025-05-06 15:35] LABS: IMMUNOGLOBULIN E 1238.4 IU/ML (0-378)
[2025-05-06 15:50] LABS: C REACTIVE PROTEIN QUANTITATIV 20.7 MG/DL (<1.0)
== END ==
LOC: M LAB REF 14:16
PROVIDERS: ATTEND Internal Medicine
DX: R70.0 Elevated erythrocyte sedimentation rate (principal); R79.82 Elevated C-reactive protein (CRP)

== ENCOUNTER → 2025-05-08 | Outpatient (CLI) | payer OTHER ==
[~2025-05-08] MED LIST changes: +ISOVUE-370 76% 100 ML VIAL As Ordered ONE
== END ==
LOC: M RAD 17:04
PROVIDERS: ATTEND Internal Medicine
DX: M06.4 Inflammatory polyarthropathy (principal); R07.0 Pain in throat; R79.82 Elevated C-reactive protein (CRP)
CPT/HCPCS: 71260; 74177; 86140; Q9967

== ENCOUNTER → 2025-05-09 | Outpatient (REF) | payer OTHER ==
[~2025-05-09] MED LIST changes: -ISOVUE-370 76% 100 ML VIAL As Ordered ONE
[2025-05-09 18:52] LABS: EOSINOPHILS 1 % (0-3); LYMPHOCYTES 9 % (16-44); MONOCYTES 6 % (0-5); NEUTROPHILS 84 % (28-66); PLATELET ESTIMATE INCREASED (NORMAL)
== END ==
LOC: M LAB REF 17:38
PROVIDERS: ATTEND Nurse Practitioner Adult Health
DX: D72.829 Elevated white blood cell count, unspecified (principal); M06.4 Inflammatory polyarthropathy; R70.0 Elevated erythrocyte sedimentation rate; R79.82 Elevated C-reactive protein (CRP)

== ENCOUNTER → 2025-05-13 | Outpatient (REF) | payer OTHER | LOC: M LAB REF 14:21 | PROVIDERS: ATTEND Internal Medicine | DX: R70.0 Elevated erythrocyte sedimentation rate (principal); R79.82 Elevated C-reactive protein (CRP) ==

== ENCOUNTER → 2025-05-15 | Outpatient (REF) | payer OTHER | LOC: M SFHCWAGY 15:14 | PROVIDERS: ATTEND Obstetrics & Gynecology | DX: Z12.72 Encounter for screening for malignant neoplasm of vagina (principal); R87.610 Atypical squamous cells of undetermined significance on cytologic smear of cervix (ASC-US) ==

== ENCOUNTER → 2025-07-02 | Outpatient (REF) | payer OTHER | LOC: M LAB REF 17:07 | PROVIDERS: ATTEND Internal Medicine | DX: L30.9 Dermatitis, unspecified (principal); M06.4 Inflammatory polyarthropathy ==